=== PATIENT | male | born 1970 | race Caucasian/White ===

== ENCOUNTER → 2017-07-23 | Outpatient (CLI) | payer SELFPAY | END | disposition home or self-care (01) | LOC: KCIC MRI 16:00 | DX: S83.511A Sprain of anterior cruciate ligament of right knee, initial encounter (principal); S83.241A Other tear of medial meniscus, current injury, right knee, initial encounter; M25.461 Effusion, right knee; X58.XXXA Exposure to other specified factors, initial encounter; Y93.89 Activity, other specified; Y92.89 Other specified places as the place of occurrence of the external cause; Y99.8 Other external cause status | CPT/HCPCS: 73721 ==

== ENCOUNTER 2017-09-06 08:11 | Day surgery (SDC) | payer OTHER ==
[~2017-09-06 08:11] MED LIST: EPINEPHrine VIAL 30 MG/30 ML VIAL
[2017-09-06] MEDS ORDERED: MIDAZOLAM HCL/PF 2 MG/2 ML VIAL. (08:16)
[2017-09-06] MEDS ORDERED: LIDOCAINE 2% PF Vial for OR 5 ML VIAL. (08:16)
[2017-09-06] MEDS ORDERED: fentaNYL PF VIAL 100 MCG/2 ML VIAL ×2 (08:16→10:32)
[2017-09-06] MEDS ORDERED: PROPOFOL 20 ML IV ×2 (08:16→10:36)
[2017-09-06] MEDS ORDERED: ONDANSETRON PF 4 MG/2 ML VIAL. IV (08:30)
[2017-09-06] MEDS ORDERED: fentaNYL PF VIAL 100 MCG/2 ML VIAL IV ×3 (08:30)
[2017-09-06] MEDS ORDERED: LIDOCAINE 1% PF 2 ML VIAL. ID ×2 (08:30)
[2017-09-06] MEDS: IV RINGERS,LACTATED 1000ML 1,000 ML IV ×2 (08:58→09:04)
[2017-09-06] MEDS ORDERED: ceFAZolin 2GM PREMIX 2 GM/50 ML BAG IV (10:00)
[2017-09-06] MEDS ORDERED: KETAMINE HCL 500 MG/10 ML VIAL. (10:03)
[2017-09-06] MEDS ORDERED: DEXAMETHASONE SOD PHOS 20 MG/5 ML VIAL. (10:36)
[2017-09-06] MEDS ORDERED: ONDANSETRON PF 4 MG/2 ML VIAL. (10:36)
[2017-09-06] MEDS: BUPIVACAINE-EPI 0.25%-1:200000 50 ML VIAL. (10:56)
[2017-09-06] MEDS ORDERED: KETOROLAC 30 MG/ML INJ. (11:37)
[2017-09-06] MEDS: fentaNYL PF VIAL 100 MCG/2 ML VIAL IV ×3 (11:53→12:21)
[2017-09-06] MEDS: MORPHINE SULFATE 4 MG/ML DISP.SYRIN. IV ×2 (11:53→12:04)
[2017-09-06] MEDS: PROCHLORPERAZINE 10 MG/2 ML VIAL. IV ×2 (11:54→12:02)
[2017-09-06] MEDS ORDERED: ROPIVacaine 0.5% PF 20 ML VIAL. (12:14)
[2017-09-06] MEDS: MIDAZOLAM HCL/PF 2 MG/2 ML VIAL. IV (12:21)
[2017-09-06] MEDS ORDERED: MIDAZOLAM HCL/PF 5 MG/5 ML VIAL. IV (12:30)
[2017-09-06] MEDS: oxyCODONE/APAP 7.5/325 1 TAB TABLET PO (13:21)
== END 2017-09-06 14:19 | disposition home or self-care (01) ==
LOC: SURG 08:11
DX: S83.511A Sprain of anterior cruciate ligament of right knee, initial encounter (principal); S83.241A Other tear of medial meniscus, current injury, right knee, initial encounter; Z98.890 Other specified postprocedural states; K21.9 Gastro-esophageal reflux disease without esophagitis; Z72.89 Other problems related to lifestyle; Z85.820 Personal history of malignant melanoma of skin; Z88.1 Allergy status to other antibiotic agents; Z91.018 Allergy to other foods; Z88.8 Allergy status to other drugs, medicaments and biological substances; Z79.899 Other long term (current) drug therapy; X50.1XXA Overexertion from prolonged static or awkward postures, initial encounter; Y93.89 Activity, other specified; Y92.89 Other specified places as the place of occurrence of the external cause; Y99.8 Other external cause status
CPT/HCPCS: 29881; C1713; C1762; J0171; J0690; J0780; J1100; J1885; J2250; J2270; J2405; J2704; J2795; J3010; J3490; J7120